=== PATIENT | male | born 1935 | race Caucasian/White ===

== ENCOUNTER 2017-02-19 19:29 | Emergency (ER) | payer MEDICARE ==
[~2017-02-19] VITALS: Ht 177.8 cm; Wt 65.2 kg
[~2017-02-19 19:29] MED LIST: LORTA5 PO; SULF1TAB47 PO
[2017-02-19 19:55] VITALS: BP 155/74; PULSE 77; RESP 18; TEMP 99.6; O2SAT 96
[2017-02-19] MEDS ORDERED: AMLO10TA2 PO (20:06)
[2017-02-19] MEDS ORDERED: GLUC500T4 PO (20:06)
[2017-02-19] MEDS ORDERED: IRON18TA2 PO (20:06)
[2017-02-19] MEDS ORDERED: ASCO500C PO (20:06)
[2017-02-19] MEDS ORDERED: VITA500S3 SL (20:06)
[2017-02-19] MEDS ORDERED: FOLI800T PO (20:06)
[2017-02-19 20:14] VITALS: BP 155/74; TEMP 99.6; O2SAT 96
[2017-02-19 20:55] LABS: AUTOMATED NEUTROPHIL # 12.4 TH/MM3 (1.8-7.7); BASOPHIL # 0.2 TH/MM3 (0-0.2); BASOPHIL % 1.4 % (0.0-2.0); EOSINOPHIL % 0.3 % (0.0-4.0); LYMPH % 3.4 % (9.0-44.0); LYMPHOCYTE # 0.5 TH/MM3 (1.0-4.8); MEAN CORPUSCULAR HEMOGLOBIN 29.2 PG (27.0-34.0); MEAN CORPUSCULAR HGB CONC 33.6 % (32.0-36.0); NEUT % 85.9 % (16.0-70.0); PLATELET COUNT 329 TH/MM3 (150-450); RED BLOOD COUNT 4.48 MIL/MM3 (4.50-5.90); RED CELL DISTRIBUTION WIDTH 12.8 % (11.6-17.2); WHITE BLOOD COUNT 14.4 TH/MM3 (4.0-11.0)
[2017-02-19 21:02] LABS: CHLORIDE 103 MEQ/L (98-107); POTASSIUM 4.2 MEQ/L (3.5-5.1); SODIUM (NA) 138 MEQ/L (136-145)
[2017-02-19 21:05] VITALS: BP 170/92; PULSE 88; RESP 18; O2SAT 95
[2017-02-19 21:05] LABS: ANION GAP 9 MEQ/L (5-15); BICARBONATE 26.5 MEQ/L (21.0-32.0)
[2017-02-19 21:06] LABS: BLOOD UREA NITROGEN 17 MG/DL (7-18); HEMO FLAGS DIFF FINAL
--- NOTE | 2017-02-19 21:07 | PD ---
HPI Chief Complaint: Pain: Acute or Chronic Time Seen by Provider: 20:15 Travel History International Travel<30 days: No Contact w/Intl Traveler<30days: No Traveled to known affect area: No History of Present Illness HPI 79-year-old male presents emergency Department with right sided flank and chest pain this started earlier today. Patient has not felt well for several months. He describes flulike symptoms with migrating myalgias, low-grade fevers, joint pains, ongoing for the past several months. He's also been losing weight. He is a history of colon cancer treated with a partial colectomy of the sigmoid colon in 2012. He did not require chemotherapy or radiation at that time. Today he started feeling worse, developed this new pleuritic right flank/right chest wall pain. He also had a fever up to 102. He's had a little bit of nausea and vomiting with this. He's not had any cough. He has not had any urinary symptoms. History Past Medical History Narrative Medical Hypertension Rheumatoid arthritis Cataracts History of sigmoid colon cancer status post partial colectomy in 2012 Influenza Vaccination: No Social History Alcohol Use: Yes Tobacco Use: No Allergies-Medications (Allergen,Severity, Reaction): Coded Allergies: No Known Allergies (Unverified , 02/19/17) Reported Meds & Prescriptions Reported Meds & Active Scripts Active Reported Glucosamine-Chondroitin 500-400 Mg Tab 1 Tab PO DAILY Folic Acid 800 Mcg Tab 800 Mcg PO DAILY Vitamin C (Ascorbic Acid) 500 Mg Cap 500 Mg PO Vitamin B-12 (Cyanocobalamin) 500 Mcg Subl 500 Mcg SL DAILY Iron (Ferrous Fumarate) 18 Mg Tab 25 Mg PO DAILY Amlodipine (Amlodipine Besylate) 10 Mg Tab 10 Mg PO DAILY Review of Systems Except as stated in HPI: all other systems reviewed are Neg Physical Exam Narrative GENERAL: 81-year-old man, generally well-appearing, thin, nontoxic. SKIN: Focused skin assessment warm/dry. NECK: Trachea midline. No JVD. CARDIOVASCULAR: Regular rate and rhythm. No murmur appreciated. RESPIRATORY: No accessory muscle use. Clear to auscultation. Breath sounds equal bilaterally. GASTROINTESTINAL: Abdomen soft, non-tender, nondistended. Hepatic and splenic margins not palpable. MUSCULOSKELETAL: No obvious deformities. No edema. NEUROLOGICAL: Awake and alert. No obvious cranial nerve deficits. Motor grossly within normal limits. Normal speech. PSYCHIATRIC: Appropriate mood and affect; insight and judgment normal. Data Data Last Documented VS Vital Signs Date Time Temp Pulse Resp B/P Pulse Ox O2 Delivery O2 Flow Rate FiO2 02/19/17 21:05 88 18 170/92 95 Room Air 02/19/17 20:14 99.6 Orders Complete Blood Count With Diff (02/19/17 20:26) Comprehensive Metabolic Panel (02/19/17 20:26) D-Dimer (02/19/17 20:26) Chest, Pa & Lat (02/19/17 ) Urinalysis - C+S If Indicated (02/19/17 20:26) Iv Access Insert/Monitor (02/19/17 20:26) Electrocardiogram (02/19/17 ) Troponin I (02/19/17 20:26) Ct Pulmonary Angiogram (02/19/17 ) Ct Abd/Pel W Iv Contrast(Rout) (02/19/17 ) Sodium Chlor 0.9% 1000 Ml Inj (Ns 1000 M (02/19/17 21:30) Iohexol 350 Inj (Omnipaque 350 Inj) (02/19/17 23:09) Labs Laboratory Tests Test 02/19/17 02/19/17 20:50 22:30 White Blood Count 14.4 TH/MM3 Red Blood Count 4.48 MIL/MM3 Hemoglobin 13.1 GM/DL Hematocrit 39.0 % Mean Corpuscular Volume 87.0 FL Mean Corpuscular Hemoglobin 29.2 PG Mean Corpuscular Hemoglobin 33.6 % Concent Red Cell Distribution Width 12.8 % Platelet Count 329 TH/MM3 Mean Platelet Volume 7.9 FL Neutrophils (%) (Auto) 85.9 % Lymphocytes (%) (Auto) 3.4 % Monocytes (%) (Auto) 9.0 % Eosinophils (%) (Auto) 0.3 % Basophils (%) (Auto) 1.4 % Neutrophils # (Auto) 12.4 TH/MM3 Lymphocytes # (Auto) 0.5 TH/MM3 Monocytes # (Auto) 1.3 TH/MM3 Eosinophils # (Auto) 0.0 TH/MM3 Basophils # (Auto) 0.2 TH/MM3 CBC Comment DIFF FINAL Differential Comment D-Dimer Quantitative (PE/DVT) 1.27 MG/L FEU Sodium Level 138 MEQ/L Potassium Level 4.2 MEQ/L Chloride Level 103 MEQ/L Carbon Dioxide Level 26.5 MEQ/L Anion Gap 9 MEQ/L Blood Urea Nitrogen 17 MG/DL Creatinine 0.80 MG/DL Estimat Glomerular Filtration 93 ML/MIN Rate Random Glucose 117 MG/DL Calcium Level 8.7 MG/DL Total Bilirubin 0.6 MG/DL Aspartate Amino Transf 68 U/L (AST/SGOT) Alanine Aminotransferase 28 U/L (ALT/SGPT) Alkaline Phosphatase 199 U/L Troponin I LESS THAN 0.02 NG/ML Total Protein 7.6 GM/DL Albumin 3.6 GM/DL Urine Color YELLOW Urine Turbidity CLEAR Urine pH 5.5 Urine Specific [place] 1.015 Urine Protein NEG mg/dL Urine Glucose (UA) NEG mg/dL Urine Ketones TRACE mg/dL Urine Occult Blood NEG Urine Nitrite NEG Urine Bilirubin NEG Urine Leukocyte Esterase NEG Urine Squamous Epithelial 0-5 /hpf Cells Microscopic Urinalysis Comment CULT NOT INDICATED MDM Medical Decision Making Medical Screen Exam Complete: Yes Emergency Medical Condition: Yes Interpretation(s) LABS: CBC remarkable for mild leukocytosis. CMP is unremarkable. Troponins negative. D-dimer 1.[address] abdomen and pelvis, CTA negative for PE. Bilateral metastatic disease. Infiltrative mass in the right lobe of the liver. Differential Diagnosis Malignancy, infection, pneumonia, PE, ACS, other Narrative Course Medical decision making INITIAL: Is an 81 year-old woman who presents to the emergency department sick for couple months, with abrupt right sided flank pain, fevers, some vomiting. He's been losing weight. He may have an occult malignancy. May have pneumonia but is not really coughing. PE seems less likely. ACS seems less likely. We' ll check some initial labs, likely imaging of the chest and belly, reassess. Diagnosis Primary Impression: Metastatic cancer Additional Instructions: Follow-up with Dr. Arevalo Tuesday. Follow-up with [facility] new patient appointment first thing Tuesday for the first available appointment. Use Lortab if needed for pain. Return to the emergency department for any new or worsening symptoms. Med/Other Pt SpecificInfo: Prescription(s) given Scripts Hydrocodone-Acetaminophen (Lortab)5-325 Mg Tab1-2 Tab PO Q6H PRN (PAIN) #12 TAB Prov:Nish Sawant MD 02/19/17 Disposition: 01 DISCHARGE HOME Condition: Stable Nish Sawant C. MD February 19, 2017 21:07
[2017-02-19 21:08] LABS: ALT (GPT) 28 U/L (12-78); AST (GOT) 68 U/L (15-37)
[2017-02-19 21:09] LABS: GLOMERULAR FILTRATION RATE 93 ML/MIN (>89)
[2017-02-19 21:10] LABS: TOTAL BILIRUBIN ADULT 0.6 MG/DL (0.2-1.0)
[2017-02-19 21:11] LABS: ALKALINE PHOSPHATASE 199 U/L (45-117)
--- NOTE | 2017-02-19 21:15 | RADHPO ---
EXAM DATE/TIME: 02/19/2017 20:57 [facility] COMPARISON: No previous studies available for comparison. INDICATIONS : Right side chest pain. No known trauma. MEDICAL HISTORY : Carcinoma, colon. Hypertension SURGICAL HISTORY : None. ENCOUNTER: Initial ACUITY: 1 day PAIN SCORE: 7/10 LOCATION: Right chest FINDINGS: Innumerable nodules are noted throughout the mid and lower lung piper bilaterally raising the possib ility of metastatic disease. There is elevation of the right hemidiaphragm. The heart is normal. CONCLUSION: 1. Innumerable nodules scattered throughout the mid and lower lung piper bilaterally suggestive of possible metastatic disease. Clinical correlation is recommended. 2. Elevated of the right hemidiaphragm. Michael Sharp MD on February 19, 2017 at 21:08 Board Certified Radiologist. This report was verified electronically.
[2017-02-19] MEDS ORDERED: SODIUM CHLOR 0.9% 1000 ML INJ 1,000 ML IV SCH (21:30)
[2017-02-19 22:33] LABS: BLOOD, URINE NEG (NEG); GLUCOSE,URINE NEG (NEG); KETONE, URINE TRACE mg/dL (NEG); NITRITE,URINE NEG (NEG); PH, URINE 5.5 (5.0-8.5)
[2017-02-19 22:59] LABS: SQUAMOUS EPITHELIAL CELL URINE 0-5 /hpf (0-5); URINE COLOR YELLOW (YELLW/STRAW)
[2017-02-19 23:00] LABS: COMMENT (UR) CULT NOT INDICATED; CULTURE IF INDICATED CULT NOT INDICATED
[2017-02-19] MEDS ORDERED: IOHEXOL 350 MG/ML 10 ML VIAL (for RAD DIAG) IV ONE (23:09)
--- NOTE | 2017-02-19 23:10 | RADHPO ---
EXAM DATE/TIME: 02/19/2017 22:27 [facility] COMPARISON: CHEST PA & LAT, February 19, 2017, 20:57. INDICATIONS : Right sided chest pain. IV CONTRAST: 100 cc Omnipaque 350 (iohexol) IV ; Cumulative dose for multiple exams. RADIATION DOSE: 11.52 CTDIvol (mGy) MEDICAL HISTORY : Carcinoma, colon. Rheumatoid arthritis. SURGICAL HISTORY : Partial colectomy. ENCOUNTER: Initial ACUITY: 1 day PAIN SCALE: 7/10 LOCATION: Right chest TECHNIQUE: Volumetric scanning of the chest was performed using a pulmonary embolism protocol MIP images were re constructed. Using automated exposure control and adjustment of the mA and/or kV according to patien t size, radiation dose was kept as low as reasonably achievable to obtain optimal diagnostic quality images. FINDINGS: PULMONARY ARTERIES: No filling defects are seen in the pulmonary arteries through the segmental level. LUNGS: Multiple scattered pulmonary nodules are seen throughout both lung piper highly suspicious for diffu se lung metastatic disease. The largest mass measures 3.7 x 3.7 cm in the posterior right lower lung. PLEURAE: There is no pleural thickening or pleural effusion. MEDIASTINUM: A few nonspecific lymph nodes are demonstrated. The heart size appears to be enlarged. MUSCULOSKELETAL: Within normal limits for patient age. MISCELLANEOUS: Large infiltrative mass involving the right lobe liver measuring at least 10.5 cm. CONCLUSION: 1. No evidence of pulmonary embolism. 2. Diffuse bilateral lung metastatic disease. 3. Infiltrative mass throughout the right lobe of the liver measuring at least 10.5 cm suspicious for hepatocellular carcinoma. Ken Mccormick MD on February 19, 2017 at 23:03 Board Certified Radiologist. This report was verified electronically.
--- NOTE | 2017-02-19 23:16 | RADHPO ---
EXAM DATE/TIME: 02/19/2017 22:27 [facility] COMPARISON: No previous studies available for comparison. INDICATIONS : Right sided flank pain. IV CONTRAST: 100 cc Omnipaque 350 (iohexol) IV ; Cumulative dose for multiple exams. ORAL CONTRAST: No oral contrast ingested. RADIATION DOSE: 12.36 CTDIvol (mGy) MEDICAL HISTORY : Carcinoma, colon. Hypertension. SURGICAL HISTORY : Partial colectomy. ENCOUNTER: Initial ACUITY: 1 day PAIN SCALE: 7/10 LOCATION: Right flank TECHNIQUE: Volumetric scanning of the abdomen and pelvis was performed. Using automated exposure control and ad justment of the mA and/or kV according to patient size, radiation dose was kept as low as reasonably achievable to obtain optimal diagnostic quality images. FINDINGS: LOWER LUNGS: Diffuse bilateral lung metastatic disease. LIVER: Large infiltrative mass involving most of the right lobe of the liver measuring 11.8 x 10.1 cm. Hepat ocellular carcinoma is the primary consideration. No dilated biliary ducts. The gallbladder is unrema rkable. SPLEEN: Normal size without lesion. PANCREAS: Within normal limits. KIDNEYS: Normal in size and shape. There is no mass, stone or hydronephrosis. ADRENAL GLANDS: The right adrenal gland is enlarged suspicious for metastatic disease. The left adrenal gland is unre markable. VASCULAR: There is no aortic aneurysm. Atherosclerotic changes. BOWEL/MESENTERY: The stomach, small bowel, and colon demonstrate no acute abnormality. There is no free intraperitone al air or fluid. No inflammatory changes. Stool throughout the colon. There is a nonspecific soft tis sukhdev appearing mass like area in the central deep pelvis measuring 4.7 cm. ABDOMINAL WALL: Within normal limits. RETROPERITONEUM: Few small nonspecific lymph nodes are seen in the para-aortic area. No definite pelvic adenopathy is demonstrated. BLADDER: No wall thickening or mass. REPRODUCTIVE: The prostate gland measures 5.0 cm. INGUINAL: There is no lymphadenopathy or hernia. MUSCULOSKELETAL: Within normal limits for patient age. Primary degenerative changes. CONCLUSION: 1. Large infiltrative mass involving most the right lobe of the liver highly suspicious for hepatocel lular carcinoma. 2. Diffuse bilateral lung metastatic disease. 3. Enlarged abnormal right adrenal gland most likely metastatic disease. 4. Nonspecific soft tissue masslike appearing density deep in the pelvis. This could be nonopacified loops of bowel versus drop metastases. Ken Mccormick MD on February 19, 2017 at 23:09 Board Certified Radiologist. This report was verified electronically.
[2017-02-19] MEDS ORDERED: HYDR-3533 PO (23:39)
[2017-02-19 23:47] VITALS: BP 150/76; TEMP 99.5
--- NOTE | 2017-02-20 17:36 | EKG ---
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 Otherwise without significant serial garcia e. Abnormal ECG PREVIOUS TRACING : 01/12/2013 09.41 DOCTOR: Komal Alejandro Interpretating Date/Time 02/20/2017 17:35:03
== END 2017-02-20 00:05 | disposition home or self-care (01) ==
LOC: PHED 19:29
DX: R10.9 Unspecified abdominal pain (principal); R91.8 Other nonspecific abnormal finding of lung field; R16.0 Hepatomegaly, not elsewhere classified; I10 Essential (primary) hypertension; R94.31 Abnormal electrocardiogram [ECG] [EKG]; M06.9 Rheumatoid arthritis, unspecified; R63.4 Abnormal weight loss; Z85.038 Personal history of other malignant neoplasm of large intestine
CPT/HCPCS: 71020; 71275; 74177; 80053; 81001; 84484; 85025; 85379; 93005; 96360; 99284; J7030; Q9967

== ENCOUNTER 2017-03-02 07:05 | Day surgery (SDC) | payer MEDICARE ==
[~2017-03-02] VITALS: Ht 177.8 cm; Wt 63.2 kg
[~2017-03-02 07:05] MED LIST changes: +AMLO10TA2 PO; +ASCO500C PO; +FOLI800T PO; +GLUC500T4 PO; +HYDR-3533 PO; +IRON18TA2 PO; -LORTA5 PO; -SULF1TAB47 PO; +VITA500S3 SL
[2017-03-02 07:25] VITALS: BP 152/76; PULSE 81; RESP 20; TEMP 97.7; O2SAT 98
[2017-03-02] MEDS ORDERED: POVIDONE IODINE 5% (ANTISEPSIS KIT) 4 APPLICATIONS EACH NARE SCH (08:00)
[2017-03-02] MEDS ORDERED: CHLORHEXIDINE GLUCONATE 2 % 1 PACK (2 CLOTHS) TOPICAL SCH (08:00)
[2017-03-02] MEDS ORDERED: VANCOMYCIN 1000 MG/NS 250 ML - implanted port/tunneled catheter IV SCH ×2 (08:00)
[2017-03-02] MEDS ORDERED: SODIUM CHLORIDE 0.9% 1000 ML IV SCH (08:00)
[2017-03-02] MEDS ORDERED: ceFAZolin 2 GM PREMIX 50 ML - implanted port/tunneled catheter insertion IV SCH (08:00)
[2017-03-02] MEDS ORDERED: LIDOCAINE 1%/EPINEPHrine 1:100,000 SOLN 20 ML VIAL ONE (09:10)
[2017-03-02] MEDS ORDERED: fentaNYL CITRATE 250 MCG/5 ML AMP ONE (09:14)
[2017-03-02] MEDS ORDERED: MIDAZOLAM HCL 5 MG/5 ML VIAL ONE (09:14)
[2017-03-02 09:55] VITALS: BP 145/70; PULSE 82; RESP 19; TEMP 97.8; O2SAT 94
--- NOTE | 2017-03-02 09:56 | PD.RAD ---
Post Procedure Progress Note Pre Procedure Diagnosis: (1) Metastatic cancer Post Procedure Diagnosis: (1) Metastatic cancer Procedure Date: March 02, 2017 Supervising Radiologist: Lokesh Carbajal Proceduralist/Assist: Rosa Maria Bey, RT(R)(), Radames Becerra RT(R)() Anesthesia: Local, Analgesia, Conscious Sedation Plan of Activity Patient to Unit: ROPU Patient Condition: Good See PACS Report for procedural detail/treatment Central Venous Access Device Procedure 1 Right Internal Jugular Infusaport Placement single lumen [place]: 8 Lokesh Carbajal MD March 02, 2017 09:56
[2017-03-02] MEDS ORDERED: SODIUM CHLORIDE 0.9% FLUSH 10 ML FLUSH IVF PRN (10:00)
[2017-03-02 10:10] VITALS: BP 147/70; PULSE 91; RESP 18; O2SAT 95
[2017-03-02 10:40] VITALS: BP 129/75; PULSE 83; RESP 19; O2SAT 95
[2017-03-02 11:10] VITALS: BP 119/66; PULSE 83; RESP 18; O2SAT 97
[2017-03-02 11:40] VITALS: BP 126/68; PULSE 75; RESP 18; O2SAT 97
--- NOTE | 2017-03-02 13:56 | RADRPT ---
EXAM DATE/TIME: 03/02/2017 10:12 [facility] COMPARISON: No previous studies available for comparison. INDICATIONS : Patient with a history of colon cancer, needs chemotherapy. MEDICAL HISTORY : HTN Rheumatoid arthritis Cataracts Sigmoid colon cancer SURGICAL HISTORY : Partial colectomy Right ankle and foot surgery ENCOUNTER: Initial ACUITY: >1 year PAIN SCORE: 0/10 FLUORO TIME: 0.4 minutes IMAGE SERIES: 1 SEDATION TIME: 30 minutes ACCESS: Right internal jugular vein SEDATION: 1.) 3 mg midazolam (Versed) IV 2.) 200 mcg fentanyl (Sublimaze) IV Prophylactic antibiotics were administered with appropriate pre-procedure timing. Vancomycin within 2 hours of procedure, Ancef (or alternative) within 1 hour of procedure. DEVICE: 1. 8 [place] single lumen Bard Power Port PROCEDURE : 1. Continuous pulse oximetry and EKG monitoring. 2. Intravenous conscious sedation. 3. Ultrasound guidance for venous access. 4. Fluoroscopic guided implantable central venous port placement. The patient was placed supine. The neck was prepped in sterile fashion. Full sterile technique was u sed, including cap, mask, sterile gloves and gown, and a large sterile sheet. Hand hygiene and 2% ch lorhexidine Betadine was utilized per protocol for cutaneous antisepsis with appropriate dry time for site. The skin and subcutaneous tissues were infiltrated with local anesthetic solution. Under direct ultrasound guidance, central venous access was accomplished in the targeted vessel. The ultrasound images depicting access guidance were stored and saved to PACS for permanent record. A s ubcutaneous pocket was created using blunt dissection. The port was introduced to the pocket. The c atheter tubing was fed through a subcutaneous tunnel to the venotomy site. The catheter tubing was c ut to a suitable length and then was introduced through a valved Peel-Away sheath and positioned with catheter tubing tip at the cavo-atrial junction level. The pocket incision was closed with subcutic ular Vicryl suture. Steri-Strips were applied. The port was flushed and locked with heparin solutio n per protocol. Sterile dressing was applied to the site. The patient tolerated the procedure well. Conscious sedation was performed with the prescribed dosages and duration as above in the presence of an independent trained radiology nurse to assist in the monitoring of the patient. EKG and oximetry remained stable throughout the procedure. The patient tolerated the procedure well and there were no complications. The patient was sent to post anesthesia recovery in stable condition. CONCLUSION: Uncomplicated ultrasound and fluoroscopic guided implanted central venous port catheter placement as described in detail above. An 8 [place] Power port was placed. Lokesh Carbajal MD on March 02, 2017 at 13:54 Board Certified Radiologist. This report was verified electronically.
== END 2017-03-02 11:55 | disposition home or self-care (01) ==
LOC: HROP 07:05 → HRIP 07:09 → HROP 11:55
PROVIDERS: ATTEND Internal Medicine Hematology & Oncology
DX: C79.9 Secondary malignant neoplasm of unspecified site (principal); R91.8 Other nonspecific abnormal finding of lung field; I10 Essential (primary) hypertension; Z85.038 Personal history of other malignant neoplasm of large intestine; Z90.49 Acquired absence of other specified parts of digestive tract
CPT/HCPCS: 36561; 76937; 77001; 99152; 99153; C1788; J0690; J1642; J2250; J3010; J3370; J7030; J7050

== ENCOUNTER 2017-03-17 06:03 | Day surgery (SDC) | payer MEDICARE ==
[~2017-03-17] VITALS: Ht 177.8 cm; Wt 61.4 kg
[2017-03-17] VITALS (8 sets, daily range): BP systolic 118–149; BP diastolic 55–75; PULSE 75–92; RESP 18–20; TEMP 97.6–97.9; O2SAT 97–99
[2017-03-17] MEDS ORDERED: VITA500C18 PO (06:46)
[2017-03-17] MEDS ORDERED: SODIUM CHLOR 0.9% 1000 ML IV SCH (07:00)
[2017-03-17 07:21] LABS: AUTOMATED NEUTROPHIL # 5.2 TH/MM3 (1.8-7.7); BASOPHIL % 0.2 % (0.0-2.0); EOSINOPHIL # 0.2 TH/MM3 (0-0.4); EOSINOPHIL % 2.6 % (0.0-4.0); HEMATOCRIT 36.9 % (39.0-51.0); HEMO FLAGS DIFF FINAL; LYMPH % 11.1 % (9.0-44.0); LYMPHOCYTE # 0.8 TH/MM3 (1.0-4.8); MEAN CELL VOLUME 85.2 FL (80.0-100.0); MEAN CORPUSCULAR HEMOGLOBIN 28.2 PG (27.0-34.0); MEAN CORPUSCULAR HGB CONC 33.1 % (32.0-36.0); MONO % 12.9 % (0.0-8.0); NEUT % 73.2 % (16.0-70.0); PLATELET COUNT 294 TH/MM3 (150-450); RED BLOOD COUNT 4.33 MIL/MM3 (4.50-5.90); WHITE BLOOD COUNT 7.1 TH/MM3 (4.0-11.0)
[2017-03-17] MEDS ORDERED: LIDOCAINE HCL 1% 20 ML VIAL ONE (07:33)
[2017-03-17] MEDS ORDERED: MIDAZOLAM HCL 5 MG/5 ML VIAL ONE (08:11)
[2017-03-17] MEDS ORDERED: fentaNYL CITRATE 250 MCG/5 ML AMP ONE (08:12)
--- NOTE | 2017-03-17 08:50 | PD.RAD ---
Post Procedure Progress Note Pre Procedure Diagnosis: (1) Metastatic cancer Post Procedure Diagnosis: (1) Metastatic cancer Procedure Date: Mar 17, 2017 Supervising Radiologist: Jasvir Barron Estimated blood loss: None Anesthesia: Local, Conscious Sedation Plan of Activity Patient to Unit: ROPU Patient Condition: Fair Additional Comments: Pt. post liver biopsy x 2 Pt. tolerated procedure well. Full dictated report to follow See PACS Report for procedural detail/treatment Jasvir Barron MD Mar 17, 2017 08:50
--- NOTE | 2017-03-17 10:11 | RADRPT ---
EXAM DATE/TIME: 03/17/2017 08:30 [facility] COMPARISON: CT ABDOMEN & PELVIS W CONTRAST, February 19, 2017, 22:27. INDICATIONS : Liver mass SEDATION TIME: 15 minutes BIOPSY SITE: Liver MEDICATION(S): 1.) 1.5 mg midazolam (Versed) IV 2.) 75 mcg fentanyl (Sublimaze) IV DEVICE(S): 1.) 18 gauge Temno core biopsy needle MEDICAL HISTORY : Hypertension. Carcinoma, colon. Rheumatoid arthritis. SURGICAL HISTORY : colectomy ENCOUNTER: Initial ACUITY: 1 day PAIN SCORE: 0/10 LOCATION: upper quadrant A total of two core specimen(s) were obtained and sent to the laboratory for pathologic evaluation. PROCEDURE: 1. CT guided liver biopsy. Prior to the procedure informed consent was obtained. Any appropriate prior imaging studies were rev iewed. Using automated exposure control and adjustment of the mA and/or kV according to patient size, radiat ion dose was kept as low as reasonably achievable to obtain optimal diagnostic quality images. The site was prepped in a sterile fashion. Full sterile technique was used, including cap, mask, kendall rile gloves and gown and a large sterile sheet. Hand hygiene and 2% chlorhexidine and/or betadine/al cohol prep was utilized per protocol for cutaneous antisepsis. The skin and subcutaneous tissues wer e infiltrated with local anesthetic solution. With CT guidance the previously identified target was localized. Biopsy was performed using the presc ribed needle as above. Adequate hemostasis was obtained with compression at the puncture site. Follow-up CT scan reveals no hemorrhage. The patient tolerated the procedure well and there were no complications. The patient was returned to the Radiology Outpatient Unit in stable condition. CONCLUSION: Uncomplicated CT guided biopsy. Jasvir Barron MD on March 17, 2017 at 10:09 Board Certified Radiologist. This report was verified electronically.
== END 2017-03-17 13:00 | disposition home or self-care (01) ==
LOC: HRIP 06:03 → HRAD 06:03
PROVIDERS: ATTEND Internal Medicine Hematology & Oncology
DX: C78.7 Secondary malignant neoplasm of liver and intrahepatic bile duct (principal); I10 Essential (primary) hypertension; M06.9 Rheumatoid arthritis, unspecified; Z85.038 Personal history of other malignant neoplasm of large intestine; Z90.49 Acquired absence of other specified parts of digestive tract
CPT/HCPCS: 47000; 77012; 85025; 88307; J1642; J2250; J3010; J7030

== ENCOUNTER 2017-07-31 11:04 | Emergency (ER) | payer MEDICARE ==
[~2017-07-31] VITALS: Ht 177.8 cm; Wt 58.0 kg
[~2017-07-31 11:04] MED LIST changes: -ASCO500C PO; -HYDR-3533 PO; -IRON18TA2 PO; +VITA500C18 PO
[2017-07-31 11:05] VITALS: BP 135/69; PULSE 90; RESP 18; TEMP 99; O2SAT 98
--- NOTE | 2017-07-31 11:16 | PD ---
HPI Chief Complaint: Laceration/Skin Injury Time Seen by Provider: 11:50 Travel History International Travel<30 days: No Contact w/Intl Traveler<30days: No Traveled to known affect area: No History of Present Illness HPI 82 y/m with a laceration to the right arm after cutting tree branches. States a branch fell and hit his right arm. States that the pain is minimal and he was able to control the bleeding. Denies numbness, tingling, weakness in his extremities. Pt is in treatment for chemotherapy for liver cancer, has HTN, and other reid healthy. Patient is concerned about developing infection. Tetanus is up to date. PFSH Past Medical History Cancer: Yes (SIGMOID COLON CANCER) Cardiovascular Problems: Yes Chemotherapy: Yes Diabetes: No Diminished Hearing: No Endocrine: No Gastrointestinal Disorders: Yes (COLON POLYPS & COLON CANCER ) Genitourinary: No Hepatitis: No Hiatal Hernia: No Hypertension: Yes Immune Disorder: No Musculoskeletal: Yes (rheumatoid athritis) Neurologic: No Psychiatric: No Reproductive: No Respiratory: No Thyroid Disease: No Past Surgical History Abdominal Surgery: Yes (PARTIAL COLECTOMY for colon cancer) AICD: No Body Medical Devices: NONE Joint Replacement: Yes (Right ankle and foot surgery 2012) Pacemaker: No Other Surgery: Yes Social History Alcohol Use: Yes Tobacco Use: No Substance Use: No Allergies-Medications (Allergen,Severity, Reaction): Coded Allergies: No Known Allergies (Unverified , 07/31/17) Reported Meds & Prescriptions Reported Meds & Active Scripts Active Bactrim DS (Sulfamethoxazole-Trimethoprim) 800-160 Mg Tab 1 Tab PO BID Keflex (Cephalexin) 500 Mg Capsule 500 Mg PO TID 10 Days Reported Vitamin C Sr (Ascorbic Acid) 500 Mg Caper 500 Mg PO DAILY Glucosamine-Chondroitin 500-400 Mg Tab 1 Tab PO DAILY Folic Acid 800 Mcg Tab 800 Mcg PO DAILY Vitamin B-12 (Cyanocobalamin) 500 Mcg Subl 500 Mcg SL DAILY Amlodipine (Amlodipine Besylate) 10 Mg Tab 10 Mg PO DAILY Review of Systems Except as stated in HPI: all other systems reviewed are Neg Physical Exam Narrative GENERAL: Well-developed well-nourished SKIN: Focused skin assessment warm/dry. HEAD: Atraumatic. Normocephalic. EYES: Pupils equal and round. No scleral icterus. No injection or drainage. NECK: Trachea midline. No JVD. CARDIOVASCULAR: Regular rate and rhythm. No murmur appreciated. RESPIRATORY: No accessory muscle use. Clear to auscultation. Breath sounds equal bilaterally. MUSCULOSKELETAL: No obvious deformities. No clubbing. No cyanosis. No edema. Right forearm: Avulsion to the dorsal aspect of the forearm measuring 5 cm x 3 cm, avulsed flap is incompletely approximated. Neurovascularly intact. Subcutaneous emphysema palpated superior to the wound. NEUROLOGICAL: Awake and alert. No obvious cranial nerve deficits. Motor grossly within normal limits. Normal speech. PSYCHIATRIC: Appropriate mood and affect; insight and judgment normal. Data Data Last Documented VS Vital Signs Date Time Temp Pulse Resp B/P (MAP) Pulse Ox O2 Delivery O2 Flow Rate FiO2 07/31/17 11:05 99.0 90 18 135/69 (91) 98 Orders Orders Lidocaine 1% Inj (50 Ml) (Xylocaine 1% I (07/31/17 12:00) Forearm (2vws) (07/31/17 ) Ed Discharge Order (07/31/17 13:10) [facility] Medical Decision Making Medical Screen Exam Complete: Yes Emergency Medical Condition: Yes Differential Diagnosis Right arm avulsion versus laceration versus abrasion Narrative Course 82-year-old male presents to emergency department after a soft tissue injury to the right forearm after he was cutting some branches. States the branch hit his forearm resulting in this injury. Patient is on chemotherapy is concerned about infection. Physical exam- right forearm with avulsion, bleeding controlled. Site irrigated copiously and inspected for gross contamination. Subcutaneous emphysema palpated along the superior portion of the wound. Neurovascularly intact Imaging study confirmed absence of foreign body. Antibiotics prophylaxis Advised patient to follow up with his oncologist and primary care physician tomorrow Advised when to return to the emergency department Procedures Procedure Narrative LACERATION LOCATION: Right forearm LENGTH: 3 cm NUMBER OF STITCHES/LOREN: 3 6-0 Prolene REPAIR: The area of the laceration was prepped with Betadine and sterilely draped. The laceration was infiltrated with 1% lidocaine. The wound was copiously irrigated and explored without evidence of foreign body, tendon injury or neurovascular injury. The wound was closed using 6-0 Prolene. This was a tingle layer repair. A sterile dressing was applied. The patient was advised to keep the dressing clean and dry. Patient tolerated the procedure well. Diagnosis Primary Impression: Avulsion of right upper arm Qualified Codes: S41.101A - Unspecified open wound of right upper arm, initial encounter Referrals: Oncologist Primary Care Physician Additional Instructions: Take all antibiotics as prescribed Return to her primary care physician tomorrow for evaluation Call your oncologist for follow-up Scripts Sulfamethoxazole-Trimethoprim (Bactrim DS) 800-160 Mg Tab 1 TAB PO BID for Infection, #20 TAB 0 Refills Prov: Donavon Lemus MD 07/31/17 Cephalexin (Keflex) 500 Mg Capsule 500 MG PO TID for Infection for 10 Days, CAP 0 Refills Prov: Donavon Lemus MD 07/31/17 Disposition: 01 DISCHARGE HOME Condition: Stable Elizabeth Hand Jul 31, 2017 11:16
[2017-07-31] MEDS ORDERED: CEPH-460 PO (11:51)
[2017-07-31] MEDS ORDERED: BACT800T5 PO (11:51)
[2017-07-31] MEDS ORDERED: LIDOCAINE HCL 1% 50 ML VIAL INFIL ONE (12:00)
--- NOTE | 2017-07-31 13:06 | RADRPT ---
EXAM DATE/TIME: 07/31/2017 12:18 [place] COMPARISON: No previous studies available for comparison. INDICATIONS : Tree branch hit forearm, skin tear, pain MEDICAL HISTORY : Carcinoma, lung. Carcinoma liver SURGICAL HISTORY : None. ENCOUNTER: Initial ACUITY: 1 day PAIN SCORE: 3/10 LOCATION: Right forearm FINDINGS: No fracture is seen. There does appear to be chronic hypertrophic change adjacent to the radial tuber osity. The elbow and wrist joints appear aligned. There is soft tissue swelling and air in the soft tissues at the dorsal lateral forearm. CONCLUSION: Soft tissue injury. Aamir Mcmahon MD on July 31, 2017 at 13:01 Board Certified Radiologist. This report was verified electronically.
== END 2017-07-31 13:17 | disposition home or self-care (01) ==
LOC: PHEFT 11:04
DX: S51.811A Laceration without foreign body of right forearm, initial encounter (principal); C18.7 Malignant neoplasm of sigmoid colon; W20.8XXA Other cause of strike by thrown, projected or falling object, initial encounter; Y93.H2 Activity, gardening and landscaping
CPT/HCPCS: 12002; 73090